=== PATIENT | female | born 1995 | race Hispanic/Latino ===

== ENCOUNTER 2016-11-05 07:32 | Inpatient (IN) | payer MEDICAID ==
[~2016-11-05] VITALS: Ht 170.2 cm; Wt 96.2 kg
[2016-11-05] MEDS: Lactated Ringer's 1,000 ML IV SCH ×2 (08:31→20:40)
[2016-11-05] MEDS ORDERED: Lactated Ringer's 1,000 ML IV PRN ×2 (08:44→13:11)
[2016-11-05] MEDS ORDERED: Methylergonovine 0.2 mg/mL Inj IM PRN (08:45)
[2016-11-05] MEDS ORDERED: Carboprost 250 mCg/mL Inj IM PRN (08:45)
[2016-11-05] MEDS ORDERED: Sodium Chloride LOK Flush 10 mL Syringe IVFLUSH PRN (08:45)
[2016-11-05] MEDS ORDERED: Oxytocin 30 Units/500 mL LR 30 UNITS in IV Premix 1 EACH IV PRN (08:45)
[2016-11-05] MEDS ORDERED: Hemorrhage Kit, Post Partum XX ONE ×2 (08:45→13:15)
[2016-11-05] MEDS ORDERED: Oxytocin 10 Unit/mL Inj IM PRN (08:45)
[2016-11-05 08:58] LABS: Mean Corpuscular Volume 93.9 fL (81-100)
--- NOTE | 2016-11-05 12:41 | PCM.HPOB ---
Subjective Date of Service: Nov 05, 2016 Referring Provider: Admitting Physician: Hetal Greene MD Primary Care Physician: Hetal Greene MD Attending Physician: Hetal Greene MD Chief Complaint admitted for induction of labor at 39 wk for gestational diabetes History of Present History of Present Illness 21 yrs old, at 39 wk gestational age by LMP, consistent with 11 wk u/s, admitted today for scheduled induction of labor. pt's was complicated by gestational diabetes. She used no medications other than diet control; her fasting levels were mostly 80 to 90; postprandial levels ~110, with a few readings ~140's. A1c=5.7 consistently. The MFM consult at was incomplete, she missed 3 arranged appointments. She had one u/s done by MFM on 11/02/16, which revealed he=585 mm, >90%; the recommendation was to deliver soon. OB History: (2), Para (1) Obstetrical Complications: Gestational Diabetes Past Medical History Obstetrical History: premature delivery at 34+ wk gestational age May 2015 Hx Tobacco Use: No Hx Alcohol Use: No Hx Substance Use: No Past Family History Living Arrangement: with Family Genetic Screening/Counseling Genetic Screening/Counseling: Negative Review of Systems Endocrine: Reports: Recent A1C (A1c=5.7) Allergy Coded Allergies: No Known Allergies (Verified Allergy, Unknown, 03/22/16) Exam Vital Signs stable Constitutional: Well-developed, Well-nourished HEENT: Atraumatic, PERRLA Lungs: Clear to Auscultation Heart: Exam Unremarkable Abdomen: Gravid Extremities: Pulses Palpable x4, Warm, No Edema Neurological/Psychiatric: Alert, Oriented X3, Cooperative, No Acute Distress Neuro: Grossly Neurologically Intact Labs/Diagnostics Labs Hgb=13.2; trd=918 Ultra Sound BPP=10/10 on 11/04/16; cephalic. Maternal Blood Type: O Hx Rho(D) Immune Globulin: No Group B Strep Results: Positive Previous with GBS: No Rubella: Immune OB Intrapartum Assessment/Plan Assessment 21 yr old, at 39 wk gestational age, admitted for induction of labor as planned. The case was discussed with Dr. Richards yesterday, and with Dr. Denise today. Morales score: 3, will start with Cervidil placement. Note: GBS positive status. Pain Management: Cervidil placement. Will follow. Hetal Greene MD Nov 05, 2016 12:41
--- NOTE | 2016-11-05 13:50 | CONS ---
[address] [address] CONSULTATION REPORT PATIENT: YOLIS GOMEZ : 1995 MR#: [id number] ADMIT: 11/05/2016 JOB ID: [id number] DATE OF SERVICE: 11/05/2016 REASON FOR THE CONSULT: Induction of labor for gestational diabetes at 39 weeks, with increased abdominal circumference. HISTORY OF PRESENTING ILLNESS: This is a 21 years old, 2, para 1-0-0-1, at 39 weeks and zero days based on LAVINIA of November 12, 2016, dated by last menstrual period and consistent with 11-week ultrasound. The patient has gestational diabetes with good control. The patient's reports most of fasting glucoses running between 85 and 90s, and her postprandials less than 140, with occasional one reading per week to be as high as 146. Her growth ultrasound was performed on November 03, 2016, with estimated weight of 3614 g, abdominal circumference of 37.2 mm, which is more than 99th percentile, at 41 weeks and 1 day. Head circumference measuring at 320 mm which is consistent with 36 weeks and zero days. PROBLEM LIST DURING THIS : GDM. Her 1 hour was 170 and her 3 hour was 100 fasting, 208 at 1 hour, 160 at 2 hours and 131 at 3 hours. The patient was referred to Maternal Medicine but she failed her appointment three times. PAST MEDICAL HISTORY: Noncontributory. PAST SURGICAL HISTORY: Negative. GYNECOLOGIC HISTORY: Menarche at age 13. Regular menstrual cycles. Denies history of abnormal Pap smear or history of STD. SOCIAL HISTORY: Denies smoking, alcohol, or illicit drug abuse. ALLERGIES: No known drug allergies. FAMILY HISTORY: Diabetes in mother and father. Hypertension in mother. REVIEW OF SYSTEMS: Eleven-point review of systems negative except for the items mentioned in the history of presenting illness. PHYSICAL EXAMINATION: Vital signs: Blood pressure 113/62, heart rate 86, temperature 36.6. heart tones, baseline 140, moderate variability, positive accelerations, no decelerations, category 1 tracing. Contractions rare. General: Alert and oriented to time, place and person. Neck supple. Chest: Equal air entry bilaterally. No added sounds. Cardiovascular: Regular rate and rhythm. Abdomen: Gravid. Estimated weight by Marbin maneuver 8 pounds. Lower extremities: No edema. Positive pulse bilaterally. LABORATORIES: Hemoglobin 13.2, white blood cell count 9.3, platelets 216. labs, O positive, antibody screening is negative. Rubella immune. RPR nonreactive. Hepatitis screen nonreactive. HIV negative. Chlamydia and gonorrhea screening negative on March 14, 2016. Quad screen negative for neural tube defect, Down syndrome and trisomy 18. Group B strep screen positive on October 14, 2016. ASSESSMENT: This is a 21 years old 2, para 1, at 39 weeks and zero days gestation dated by last menstrual period and consistent with 11-week ultrasound with a due date of November 12, 2016, with gestational diabetes, diet controlled, and with increased abdominal circumference. Overall estimated weight 3614 g and is at the 17th percentile. AC at 41 weeks and 1 day. HS at 36 weeks and zero days. The patient was discussed with Maternal and Medicine at the [facility] via [employer] line. As the patient has gestational diabetes, her risk of shoulder dystocia is around 18-20% and the estimated weight is below 4250 g at this time, it is reasonable to start induction of labor at 39 weeks and if labor does not progress appropriately, to have a low threshold to perform a section. The above recommendation was discussed with the patient, and risks, benefits and alternatives were discussed with the patient including risk of failed induction and increased risk of section, risk of shoulder dystocia which includes, and not limited to, the risk of maternal bleeding, fourth-degree laceration, complications including brachial plexus injury and Erb's palsy and brain anoxia and . The patient desires to proceed with induction of labor as scheduled today. Agree with Dr. Greene's plan to start induction with cervical ripening, as cervix at initial exam was zero, 50%, -3, medium consistency and mid position with Morales score of 3. The patient was also discussed with Dr. Greene, with her increased risk of shoulder dystocia, when the patient starts pushing and enters the second stage of labor, to notify CLOTH W[employer] WE[employer]ER on-call to be available in case of shoulder dystocia and to have experienced staff and extra staff available for assistance in case of shoulder dystocia. HUGO
[2016-11-05] MEDS ORDERED: Penicillin G K Inj 3,000,000 UNITS in IV Premix 1 EACH IV SCH (20:30)
[2016-11-05] MEDS ORDERED: DEXTROSE 5% IV SCH (22:15)
[2016-11-05] MEDS ORDERED: PENICILLIN K IV SCH (22:15)
[2016-11-06] MEDS ORDERED: Oxytocin 30 Units/500 mL LR 30 UNITS in IV Premix 1 EACH IV PRN ×2 (00:40→14:00)
[2016-11-06] MEDS: Lactated Ringer's 1,000 ML IV SCH ×5 (00:50→16:45)
[2016-11-06] MEDS: Penicillin G K Inj 3,000,000 UNITS in IV Premix 1 EACH IV SCH ×6 (01:49→16:30)
[2016-11-06] MEDS ORDERED: fentaNYL 2 mCg/mL-Bupivicaine 0.125% 100 mL Premix EPIDURAL ONE (08:42)
[2016-11-06] MEDS ORDERED: Ondansetron 2 mg/mL 2 mL Inj IVPUSH PRN (08:45)
[2016-11-06] MEDS ORDERED: Lactated Ringer's 500 ML IV ONE (08:45)
[2016-11-06] MEDS ORDERED: Atropine 1 mg/10 mL (Code) Syringe IVPUSH PRN (08:45)
[2016-11-06] MEDS ORDERED: EPHEDrine Sulfate 50 mg/mL Inj IVPUSH PRN (08:45)
[2016-11-06] MEDS ORDERED: fentaNYL 2 mCg/mL-Bupiv 0.125% 100 ML EPIDURAL SCH (08:45)
[2016-11-06] MEDS ORDERED: Phenylephrine/NS-PF 100 mCg/mL 5 mL Syringe IVPUSH PRN (08:45)
--- NOTE | 2016-11-06 08:47 | PCM.HPANE ---
Patient Data Surgeon Admitting Provider:Hetal Greene MD Attending Provider:Hetal Greene MD Primary Care Physician:Hetal Greene MD Other Provider:[facility] Reason for Visit Induction INDUCTION Ht/WT & BMI Body Mass Index Allergies Coded Allergies: No Known Allergies (Verified Allergy, Unknown, 03/22/16) Diabetes History Hx Diabetes?: Yes Glycemic Control: Diet Controlled Medications Hypertension Medication: No Home Meds Incl Beta Earnest: No History Hx of Heart Problems?: No Cardiovascular History: Denies:: Congestive Heart Failure Hypertension Hx of Respiratory Problem?: No Respiratory History: Denies:: Tuberculosis Hx Neurologic Problems?: No Hx of GI Problems?: Yes Gastrointestinal History: Positive for:: Heartburn Female Hx: Positive for:: Currently Hx Surgeries?: No Hx Diabetes: No Hx Alcohol Use: NoHx Substance Use: No Smoking Status: Never Smoker Have You Smoked inLast 12 mo: No Stop/Bang Treated for Sleep Apnea?: No Do You Have a CPAP Machine?: No MARTY Risk Assessment: Low Risk, <3 Yes Risk Assessment Category Category 1A: Patient has history of documented sleep apnea, and HAS NOT received any narcotic, sedative or anesthesia administration during this stay. Category 1B: Patient has history of documented sleep apnea, and HAS received any narcotic , sedative or anesthesia administration during this stay Category 2: Patient has SUSPECTED Obstructive Sleep Apnea, and HAS received any narcotic , sedative or anesthesia administration during this stay. Category 3: Patient has SUSPECTED Obstructive Sleep Apnea and HAS NOT received narcotic, sedative or anesthesia administration during this stay. Category 4: Outpatient in Procedural Areas with known sleep apnea or who screen positive for High Risk via the STOP/BANG questionnaire. Exam Exam General Appearance: Oriented X3 HEENT/AIRWAY: MP 2 Lungs: Normal Air Movement Heart: Regular Rate/Rhythm Meds/Labs/Diagnostics Admission Meds Current Medications Penicillin G Potassium/ Dextrose [id number] units/Premix 50 ml @ 100 mls/hr Q4 IV Last administered on 11/05/16 20:44; Start 11/05/16 at 20:30; Stop 11/05/16 at 22:14; Status DC Penicillin G Potassium/ Dextrose/Water (Pfizerpen Inj/ D5W) 100 ml @ 200 mls/ hr ONCE IV Last administered on 11/05/16 22:39; Start 11/05/16 at 22:15; Stop 2/17/17 at 23:15; Status DC Labs Test 11/05/16 08:20 White Blood Count 9.3th/mm3 (3.8-10.1) Red Blood Count 4.13mil/mm3 (3.90-5.20) Hemoglobin 13.2g/dL (12.0-15.6) Hematocrit 38.8% (35.0-46.0) Mean Corpuscular Volume 93.9fL (81-100) Mean Corpuscular Hemoglobin 32.0pg (27.0-35.0) Mean Corpuscular Hemoglobin Concent 34.0% (32.0-37.0) Red Cell Distribution Width 13.2% (12.3-15.4) Platelet Count 216bil/L (150-400) Plan Impression Patient chart reviewed, patient interviewed and anesthestic plan with risks, benefits, and alternatives discussed, and informed consent obtained. ASA Physical Status: ASA2 Mod Systemic Disease Anesthetic Plan: Epidural Bene/Risks/Altern/Consents: Yes HP Complete Prior to Induction: Yes Hiram Mcdonough MD Nov 06, 2016 08:47
[2016-11-06] MEDS ORDERED: Oxytocin 10 Unit/mL Inj IM PRN (14:00)
[2016-11-06] MEDS ORDERED: Hemorrhage Kit, Post Partum XX ONE (14:00)
[2016-11-06] MEDS ORDERED: Lactated Ringer's 1,000 ML IV SCH (14:00)
[2016-11-06] MEDS ORDERED: Methylergonovine 0.2 mg/mL Inj IM PRN (14:00)
[2016-11-06] MEDS ORDERED: HYDROcodone-APAP 5-325 mg Tablet PO PRN (14:00)
[2016-11-06] MEDS ORDERED: Witch Hazel-Glycerin Pads TOPICAL PRN (14:00)
[2016-11-06] MEDS ORDERED: LANOlin HPA 7 Gm Ointment TOPICAL PRN (14:00)
[2016-11-06] MEDS ORDERED: Benzocaine (Dermoplast) 20% 60 Gm Spray TOPICAL PRN (14:00)
[2016-11-06] MEDS ORDERED: Carboprost 250 mCg/mL Inj IM PRN (14:00)
--- NOTE | 2016-11-06 14:44 | PCM.OBVAG ---
Vaginal Delivery Date of Service Nov 06, 2016 Pre Operative Diagnosis Pre Operative Diagnosis gestational diabetes, diet controlled; term ; Group B strep positive status. Post Operative Diagnosis Post Operative Diagnosis normal vaginal delivery at term; adequate GBS treatment prior to delivery. Procedure Procedure: dilation was complete at 1300; delivered at 1334; placenta was delivered intact with 3-vessel cord at 1345; head position: YULIA; : 9/9; wt: 3788 g or 8 lb 6 oz; estimated blood loss: 350 ml; no tear; both the mother and the baby girl remained in good conditions after the delivery. Epidural was placed for pain control when dilated to [address] Denise ruptured the membrane when pt was 6 cm dilated, showing clear fluids, and placed IUPC and scalp electrode. pt pushed effectively, did not take very long to push out the baby. The baby girl cried vigorously right after , and she was placed on to mother's chest immediately, with cord clamped at [address] . Dr. Vilchis examined pt early this morning, authorized the use of Pitocin augmentation. 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 Greene and Dr. Denise were present for delivery due to predicted shoulder dystocia risk at 20%. Indication for Procedure Induction: Induction of labor, Pitocin augmentation, AROM Findings Obstetrical Findings: Cord (3 Vessel), Weight (3788), 1 minute (9) , 5 minutes (9) Analgesia/Medications Obstetrical Anesthesia: Epidural Blood Loss & Administration Estimated Blood Loss: 350 Blood Admin during procedure: No Post Procedure Plan Post delivery Condition: Mom stable, Baby stable to nursery copies to: Erik Denise MD,Hetal KRUGER Nov 06, 2016 14:44
[2016-11-06] MEDS: Sodium Chloride LOK Flush 10 mL Syringe IVFLUSH SCH (16:30)
[2016-11-07 07:18] LABS: Mean Corpuscular Hemoglobin 31.5 pg (27.0-35.0); Mean Corpuscular Volume 95.9 fL (81-100)
[2016-11-07] MEDS: Sodium Chloride LOK Flush 10 mL Syringe IVFLUSH SCH (08:30)
[2016-11-07] MEDS: Penicillin G K Inj 3,000,000 UNITS in IV Premix 1 EACH IV SCH ×2 (08:30→12:30)
[2016-11-07] MEDS: Lactated Ringer's 1,000 ML IV SCH ×2 (08:31→08:45)
[2016-11-07 13:26] VITALS: BP 131/69; PULSE 72; RESP 17
--- NOTE | 2016-11-07 14:12 | PCM.DIOB ---
Obstetrical Disch Instruction Date of Service: Nov 07, 2016 Dates of Hospitalization Date of Hospital Admission Nov 05, 2016 at 07:32 Providers Admitting Physician: Hetal Greene MD Primary Care Physician: Hetal Greene MD Attending Physician: Hetal Greene MD Discharge Diagnosis Problems: (1) (normal spontaneous vaginal delivery) Status: Acute ICD Code: O80 Diet Discharge Diet: No restrictions Activity Discharge Activity-General: Pelvic Rest for 6 weeks, Balance rest and activity , Activity as pain allows, Activity as energy allows Dressing and Incisional Care Hygiene: May shower, Perineal care, Sitz bath, Dermoplast spray, Witch Shruthi pads, Ice Additional Instructions Discharge Instructions Ibuprofen, PNVs and DSS all faxed to [facility], [place], through outpatient ([facility]) electronic medical record Follow Up Plan Follow-up Provider (F9): Hetal Greene MD Follow-up appointment: Weeks (6) Call your provider for: Fever or Chills, Shortness of breath, Heavy vaginal bleeding, Excessive constipation, Vaginal discomfort, Red painful breasts, Other (Swollen, painful leg) Cj Presley MD Nov 07, 2016 14:12
--- NOTE | 2016-11-07 21:13 | DIS ---
[address] [address] DISCHARGE SUMMARY PATIENT: YOLIS GOMEZ : 1995 MR#: [id number] ADMIT: 11/05/2016 JOB ID: [id number] DIS: 11/07/2016 ADMIT DIAGNOSES: 1. G2, P1, at 39 weeks. 2. Gestational diabetes, diet-controlled, with concern for macrosomia. 3. Admission for induction. 4. GBS positive. DISCHARGE DIAGNOSES: 1. G2, now P2, status post normal spontaneous vaginal delivery without complications. 2. Gestational diabetes, normal sugars in the hospital. CONSULTATION DURING HOSPITALIZATION: Erik Denise MD. HOSPITAL COURSE: For details of admission, please see admission by Dr. Hetal Greene and also consultation by Dr. Denise, and additionally details of delivery through note by Dr. Greene. Post delivery, patient did quite well, she was ambulating well with normal bowel and bladder function. Some breast pain and nipple throughout feeds (nursing working on her at this on day of discharge), some formula supplementation. She has had no fevers. Lochia normal. DISCHARGE PHYSICAL EXAMINATION: Vital signs are normal. Afebrile. No acute distress. Cardiovascular: Regular rate and rhythm. S1, S2. No murmurs, gallops, or rubs. Lungs: Clear to auscultation bilaterally. No wheezes. Abdomen: Soft, nontender. Uterus is firm at four fingerbreadths below the umbilicus midline. Lower extremities without edema. Nontender. hematocrit is 37.5. DISCHARGE INSTRUCTIONS: Patient discharged home. She will follow up at [facility] in six weeks with Dr. Greene, sooner as needed. Ibuprofen, vitamins, docusate all faxed to [facility] electronically prior to discharge. Reviewed signs and symptoms of potential peripartum complications and management, as well as access to care if those occur.
== END 2016-11-07 16:16 | disposition home or self-care (01) | DRG 560 ==
LOC: FBC 07:32
PROVIDERS: ADMIT Family Medicine; ATTEND Family Medicine
PROC: 3E0P7GC Introduction of Other Therapeutic Substance into Female Reproductive, Via Natural or Artificial Opening (ICD-10-PCS; 2016-11-05)
PROC: 10E0XZZ Delivery of Products of Conception, External Approach (ICD-10-PCS; principal; 2016-11-06)
PROC: 10907ZC Drainage of Amniotic Fluid, Therapeutic from Products of Conception, Via Natural or Artificial Opening (ICD-10-PCS; 2016-11-06)
PROC: 10H07YZ Insertion of Other Device into Products of Conception, Via Natural or Artificial Opening (ICD-10-PCS; 2016-11-06)
DX: O24.420 Gestational diabetes mellitus in childbirth, diet controlled (principal); O99.824 Streptococcus B carrier state complicating childbirth; Z3A.39 39 weeks gestation of pregnancy; Z37.0 Single live birth